=== PATIENT | male | born 1995 | race Caucasian/White ===

== ENCOUNTER 2017-01-16 00:33 | Emergency (ER) | payer BC ==
[~2017-01-16] VITALS: Ht 180.3 cm; Wt 93.5 kg
[2017-01-16 00:36] VITALS: BP 151/78; PULSE 93; TEMP 36.9; O2SAT 97; Ht 180.3 cm; Wt 93.5 kg
--- NOTE | 2017-01-16 00:49 | EMERGENCY ROOM VISIT NOTE ---
History Report prepared by Jane: Teri Holman Under the Supervision of: Dr. Law Moser D.O. First contact with patient: 00:41 Chief Complaint: ABDOMINAL PAIN Stated Complaint: SHARP ABDOMINAL PAIN,FEVER,TROUBLE WALKING History of Present Illness The patient is a 21 year old male who presents to the Emergency Room with complaints of persistent RLQ abdominal pain starting LEGAL RECEPTIONIST. The patient was on the pullup bar. He was trying to swing his lower body forward when he experienced a pop in his RLQ. He describes the pain as sharp. He had some relief with Motrin. He is concerned for hernia or appendicitis. He does not feel any bumps and his abdomen appears normal. He is not having any other symptoms. Source of History: patient Onset: LEGAL RECEPTIONIST Position: abdomen (RLQ) Quality: other (pain) Timing: other (persistent) Modifying Factors (Relieving): other (motrin) Note: Pt reports no other symptoms. Review of Systems See HPI for pertinent positives and negatives. A total of ten systems were reviewed and were otherwise negative. Past Medical & Surgical Medical Problems: (1) No Known Active Medical Problems Family History Diabetes mellitus FH: heart disease Gallbladder disease Kidney disease Kidney stones Social History Smoking Status: Never Smoker Alcohol Use: occasionally Housing Status: lives with roommate Occupation Status: [employer] student Allergies Coded Allergies: No Known Allergies (Unverified , 01/16/17) Physical Exam Vital Signs Date Time Temp Pulse Resp B/P (MAP) Pulse Ox O2 Delivery O2 Flow Rate FiO2 01/16/17 00:36 36.9 93 20 151/78 97 Room Air Physical Exam GENERAL: Awake, alert, well-appearing, in no distress HENT: Normocephalic, atraumatic. Oropharynx unremarkable. EYES: Normal conjunctiva. Sclera non-icteric. NECK: Supple. No nuchal rigidity. FROM. No JVD. RESPIRATORY: Clear to auscultation. CARDIAC: Regular rate, normal rhythm. Extremities warm and well perfused. Pulses equal. ABDOMEN: Soft, non-distended. No tenderness to palpation. No rebound or guarding. No masses. RECTAL: Deferred. MUSCULOSKELETAL: Chest examination reveals no tenderness. The back is symmetrical on inspection without obvious abnormality. There is no CVA tenderness to palpation. No joint edema. LOWER EXTREMITIES: Calves are equal size bilaterally and non-tender. No edema. No discoloration. NEURO: Normal sensorium. No sensory or motor deficits noted. SKIN: No rash or jaundice noted. Medical Decision & Procedures ED Course 0042: The patient was evaluated in room A10. A complete history and physical exam was performed. I discussed results and discharge instructions: he verbalized understanding and agreement. The patient is ready for discharge. Medical Decision Differential diagnoses include but are not limited to; sprain, strain, rectus abdominis tear, hernia. Patient's exam is very benign. Patient has no evidence of right lower quadrant tenderness or a hematoma or hernia or right inguinal hernia on exam. Patient has no rebound rigidity guarding there is no flank ecchymosis. I suspect the patient may have sprained his rectus abdominis muscle. Patient was reassured Medication Reconcilliation Current Medication List: was personally reviewed by me Blood Pressure Screening Patient's blood pressure: Elevated blood pressure Blood pressure disposition: Elevated BP felt to be situational Impression Primary Impression: Sprain of abdominal wall Scribe Attestation The scribe's documentation has been prepared under my direction and personally reviewed by me in its entirety. I confirm that the note above accurately reflects all work, treatment, procedures, and medical decision making performed by me. Departure Information Dispostion Home / Self-Care Referrals No Doctor, Assigned (PCP) Patient Instructions ED Strain Abdominal Muscle, My [facility] Additional Instructions Continue take Motrin, follow-up if increased pain nausea vomiting fever or any concerns
== END 2017-01-16 01:03 | disposition home or self-care (01) ==
LOC: C.EDB 00:36 → C.EDA 01:03
DX: S39.011A Strain of muscle, fascia and tendon of abdomen, initial encounter (principal); X50.9XXA Other and unspecified overexertion or strenuous movements or postures, initial encounter; Z83.3 Family history of diabetes mellitus; Z84.1 Family history of disorders of kidney and ureter